=== PATIENT | male | born 1990 | race Caucasian/White ===

== ENCOUNTER 2024-09-03 13:02 | Emergency (ER) | payer BC ==
[~2024-09-03] VITALS: Ht 172.7 cm; Wt 61.0 kg
[2024-09-03 13:05] VITALS: O2SAT 98
[2024-09-03] MEDS ORDERED: IBUPROFEN 600MG TABLET PO ONE (15:30)
[2024-09-03 16:29] VITALS: BP 143/85; PULSE 85; RESP 16; TEMP 36.66960; O2SAT 98
== END 2024-09-03 16:30 | disposition home or self-care (01) ==
LOC: ER 13:02
DX: S93.401A Sprain of unspecified ligament of right ankle, initial encounter (principal); S20.219A Contusion of unspecified front wall of thorax, initial encounter; Z98.890 Other specified postprocedural states; X58.XXXA Exposure to other specified factors, initial encounter; Y93.89 Activity, other specified; Y92.89 Other specified places as the place of occurrence of the external cause; Y99.8 Other external cause status
CPT/HCPCS: 71045; 73610; 99284

== ENCOUNTER 2024-09-07 13:54 | Emergency (ER) | payer BC ==
[~2024-09-07] VITALS: Ht 172.7 cm; Wt 61.0 kg
[2024-09-07 14:01] VITALS: BP 150/89; TEMP 98.8; O2SAT 99
[2024-09-07 14:14] VITALS: PULSE 96; RESP 18; O2SAT 99
[2024-09-07] MEDS ORDERED: SULF1TAB48 MT (14:29)
== END 2024-09-07 14:29 | disposition home or self-care (01) ==
LOC: ER 14:03
DX: R68.89 Other general symptoms and signs (principal)
CPT/HCPCS: 99281; 99282